=== PATIENT | female | born 1955 | race Caucasian/White ===

== ENCOUNTER 2018-06-28 13:49 | Inpatient (IN) | payer MEDICAID ==
[~2018-06-28] VITALS: Ht 152.4 cm; Wt 72.6 kg
[~2018-06-28 13:49] MED LIST: AURYXIA1 GM PO; COZAAR25 M1 PO; FERROUS SULFAT325 M2; FUROSEMIDE40 MG PO; HUMALOG100 UNIT/1; IRON325 M1 PO; LANTUS SOLOS100 U/M1 SQ; NEP PO; NOR10; NOR10 PO; NOVOLIN; PHOS PO; SIMVASTATIN40 M1; SYLVANT100 MG IV; TAMIFLU6 MG/ML PO; ZITHROMAX500 MG PO; [UNRECOGNIZED DRUG - OTHER] PO
[2018-06-28 14:55] LABS: BASOPHIL % 0.2 % (0-2)
[2018-06-28 14:59] LABS: PLATELET COUNT 97 x10^3mcL (130-400); RED CELL DISTRIBUTION WIDTH 22.6 % (11.5-14.5)
[2018-06-28 15:08] LABS: ALKALINE PHOSPHATASE 317 U/L (46-116); ALT/SGPT 28 U/L (14-59); AST/SGOT 37 U/L (15-37); BILIRUBIN TOTAL 2.1 mg/dL (0.20-1.00); CALCIUM 8.4 mg/dL (8.5-10.1); CARBON DIOXIDE 32.2 mmol/L (21-32); CHLORIDE SERUM 102 mmol/L (98-107); CREATININE SERUM 2.8 mg/dL (0.6-1.0); GFR1 18 mL/min; SODIUM SERUM 140 mmol/L (136-145); TOTAL PROTEIN, SERUM 7.3 g/dL (6.4-8.2)
[2018-06-28 15:10] LABS: POTASSIUM SERUM 2.9 mmol/L (3.5-5.1)
[2018-06-28 15:12] LABS: GLUCOSE SERUM 184 mg/dL (74-106)
[2018-06-28 16:41] LABS: MAGNESIUM 1.8 mg/dL (1.8-2.4); PHOSPHOROUS 2.5 mg/dL (2.5-4.9)
[2018-06-28 16:44] LABS: CHOLESTEROL/HDL RATIO 2.6
[2018-06-28 16:52] LABS: T3 TOTAL 1.02 ng/mL
[2018-06-28 17:03] LABS: FREE T4 1.62 ng/dL (0.76-1.46); FREE THYROXINE INDEX 4.6 ug/dL (1.4-4.5); T4(THYROXINE) 11.6 ug/dL (4.7-13.3)
[2018-06-28 17:19] VITALS: BP 114/50
[2018-06-28 17:25] VITALS: Ht 152.4 cm; Wt 72.6 kg
[2018-06-28 20:33] VITALS: BP 102/42
[2018-06-29 03:10] LABS: UA SPECIFIC GRAVITY 1.015 (1.005-1.035); microscopic required? YES; urine erythrocyte TRACE (NEGATIVE)
[2018-06-29 05:26] VITALS: BP 110/47
[2018-06-29 07:17] LABS: BASOPHIL % 0.4 % (0-2)
[2018-06-29 07:20] LABS: PLATELET COUNT 80 x10^3mcL (130-400); RED CELL DISTRIBUTION WIDTH 22.6 % (11.5-14.5)
[2018-06-29 07:30] LABS: BILIRUBIN DIRECT 0.96 mg/dL (0.0-0.2); BILIRUBIN TOTAL 1.37 mg/dL (0.20-1.00); CREATININE SERUM 3.4 mg/dL (0.6-1.0); POTASSIUM SERUM 3.6 mmol/L (3.5-5.1)
[2018-06-29 10:34] VITALS: BP 156/63
[2018-06-29 13:59] VITALS: BP 118/55
[2018-06-29 17:58] VITALS: BP 148/68
[2018-06-29 20:55] VITALS: BP 125/42
[2018-06-30 05:12] VITALS: BP 127/46
[2018-06-30 07:17] LABS: BASOPHIL % 0.5 % (0-2)
[2018-06-30 07:30] LABS: PLATELET COUNT 94 x10^3mcL (130-400)
[2018-06-30 07:47] LABS: CALCIUM 8.5 mg/dL (8.5-10.1); CARBON DIOXIDE 26.6 mmol/L (21-32); POTASSIUM SERUM 4.1 mmol/L (3.5-5.1)
[2018-06-30 07:52] LABS: CREATININE SERUM 4.3 mg/dL (0.6-1.0)
[2018-06-30 09:42] VITALS: BP 147/78
[2018-06-30 17:24] VITALS: BP 122/43
[2018-06-30 22:01] VITALS: BP 140/49
[2018-07-01 05:58] VITALS: BP 132/56
[2018-07-01 07:11] LABS: CALCIUM 8.3 mg/dL (8.5-10.1); CARBON DIOXIDE 24.9 mmol/L (21-32); CREATININE SERUM 3.3 mg/dL (0.6-1.0); POTASSIUM SERUM 4.4 mmol/L (3.5-5.1)
[2018-07-01 07:19] LABS: BASOPHIL % 0.5 % (0-2)
[2018-07-01 07:27] LABS: PLATELET COUNT 88 x10^3mcL (130-400); RED CELL DISTRIBUTION WIDTH 22.3 % (11.5-14.5)
[2018-07-01 09:38] LABS: rbc morphology (normal/abnorm) ABNORMAL (NORMAL)
[2018-07-01 09:53] VITALS: BP 143/100
[2018-07-01 17:59] VITALS: BP 130/54
[2018-07-01 20:59] VITALS: BP 138/51
[2018-07-02 05:33] VITALS: BP 136/72
[2018-07-02 07:26] LABS: BASOPHIL % 0.5 % (0-2)
[2018-07-02 07:37] LABS: PLATELET COUNT 84 x10^3mcL (130-400); RED CELL DISTRIBUTION WIDTH 22.5 % (11.5-14.5)
[2018-07-02 07:42] LABS: CALCIUM 8.4 mg/dL (8.5-10.1); CARBON DIOXIDE 22.4 mmol/L (21-32); POTASSIUM SERUM 4.4 mmol/L (3.5-5.1)
[2018-07-02 08:40] VITALS: BP 152/70
[2018-07-02 17:30] VITALS: BP 132/52
[2018-07-02] MEDS ORDERED: REQUIP0.5 MG PO (19:29)
[2018-07-02 20:34] VITALS: BP 142/48
[2018-07-03 05:22] VITALS: BP 152/53
[2018-07-03 07:51] LABS: CALCIUM 8.7 mg/dL (8.5-10.1); CARBON DIOXIDE 23.7 mmol/L (21-32); PHOSPHOROUS 5.1 mg/dL (2.5-4.9); POTASSIUM SERUM 4.7 mmol/L (3.5-5.1)
[2018-07-03 07:54] LABS: CREATININE SERUM 4.7 mg/dL (0.6-1.0)
[2018-07-03 08:06] LABS: BASOPHIL % 0.6 % (0-2)
[2018-07-03 08:08] VITALS: BP 131/61
[2018-07-03 08:13] LABS: PLATELET COUNT 91 x10^3mcL (130-400)
[2018-07-03 11:51] VITALS: BP 146/64
[2018-07-03 18:35] VITALS: BP 149/66
[2018-07-03 22:23] VITALS: BP 139/48
[2018-07-04 06:09] VITALS: BP 139/61
[2018-07-04 06:23] LABS: BASOPHIL % 0.4 % (0-2)
[2018-07-04 06:44] LABS: CALCIUM 8.5 mg/dL (8.5-10.1); CARBON DIOXIDE 26.4 mmol/L (21-32); CREATININE SERUM 3.8 mg/dL (0.6-1.0); PHOSPHOROUS 4.2 mg/dL (2.5-4.9); POTASSIUM SERUM 3.8 mmol/L (3.5-5.1)
[2018-07-04 08:35] LABS: PLATELET COUNT 87 x10^3mcL (130-400); RED CELL DISTRIBUTION WIDTH 22.1 % (11.5-14.5)
[2018-07-04 09:43] VITALS: BP 132/62
[2018-07-04] MEDS ORDERED: TAM75 PO (10:40)
[2018-07-04 10:45] LABS: rbc morphology (normal/abnorm) ABNORMAL (NORMAL)
[2018-07-04 13:19] VITALS: BP 132/62
== END 2018-07-04 15:49 | disposition home or self-care (01) | DRG 720 ==
LOC: ED 13:49 → MU 16:08 → DU 16:08 → MU 06-29 09:51
PROVIDERS: Emergency Medicine; Internal Medicine Nephrology; ADMIT Internal Medicine
DX: A41.9 Sepsis, unspecified organism (principal); N17.0 Acute kidney failure with tubular necrosis; I13.2 Hypertensive heart and chronic kidney disease with heart failure and with stage 5 chronic kidney disease, or end stage renal disease; J10.00 Influenza due to other identified influenza virus with unspecified type of pneumonia; G92 Toxic encephalopathy; N18.6 End stage renal disease; E11.22 Type 2 diabetes mellitus with diabetic chronic kidney disease; I50.43 Acute on chronic combined systolic (congestive) and diastolic (congestive) heart failure; E87.6 Hypokalemia; E87.1 Hypo-osmolality and hyponatremia; E11.65 Type 2 diabetes mellitus with hyperglycemia; D63.1 Anemia in chronic kidney disease; Z99.2 Dependence on renal dialysis; Z68.32 Body mass index [BMI] 32.0-32.9, adult; Z79.84 Long term (current) use of oral hypoglycemic drugs
CPT/HCPCS: 82962; 83880; 84439; 87804; J0692; J0696; J1815; J1885; J3480; J7030; J7050; Q0092; Q0163

== ENCOUNTER 2018-08-26 23:50 | Emergency (ER) | payer MEDICAID ==
[~2018-08-26] VITALS: Ht 149.9 cm; Wt 70.3 kg
[~2018-08-26 23:50] MED LIST changes: +REQUIP0.5 MG PO; +TAM75 PO
[2018-08-27 00:16] VITALS: Ht 149.9 cm; Wt 70.3 kg
[2018-08-27 03:19] VITALS: BP 115/59
== END 2018-08-27 03:19 | disposition home or self-care (01) ==
LOC: ED 23:50
DX: K52.9 Noninfective gastroenteritis and colitis, unspecified (principal); I48.91 Unspecified atrial fibrillation; I12.0 Hypertensive chronic kidney disease with stage 5 chronic kidney disease or end stage renal disease; N18.6 End stage renal disease; Z99.2 Dependence on renal dialysis; Z88.5 Allergy status to narcotic agent; Z91.040 Latex allergy status; Z88.1 Allergy status to other antibiotic agents; Z98.890 Other specified postprocedural states
CPT/HCPCS: J3010

== ENCOUNTER 2018-09-05 00:25 | Inpatient (IN) | payer MEDICAID ==
[~2018-09-05] VITALS: Ht 152.4 cm; Wt 74.6 kg
[2018-09-05 00:50] VITALS: Ht 152.4 cm; Wt 74.6 kg
--- NOTE | 2018-09-05 01:14 | NUR ---
DR RG AT BEDSIDE
[2018-09-05 02:10] LABS: BASOPHIL % 0.3 % (0-2)
[2018-09-05 02:14] LABS: PLATELET COUNT 121 x10^3mcL (130-400); RED CELL DISTRIBUTION WIDTH 20.7 % (11.5-14.5)
[2018-09-05 02:22] LABS: CALCIUM 8.7 mg/dL (8.5-10.1); CARBON DIOXIDE 24.6 mmol/L (21-32); POTASSIUM SERUM 4.3 mmol/L (3.5-5.1)
[2018-09-05 02:27] LABS: BILIRUBIN TOTAL 3.39 mg/dL (0.20-1.00)
[2018-09-05 02:28] LABS: ALBUMIN 2.5 g/dL (3.4-5.0)
--- NOTE | 2018-09-05 02:45 | NUR ---
PT IS RESTING IN ED GURNEY AND HAS FAMILY AT BEDSIDE. PT ON ALL MONITORS. NO ACD NOTED
--- NOTE | 2018-09-05 04:26 | NUR ---
PT MEDICATED PER EMAR ORDERS. PT IS RESTING IN ED GURNEY WITH FAMILY AT BEDSIDE. PT DENIES ANY PAIN AT THIS TIME. PT IS A/O X4. PT RESPS ARE E/U. NO ACD NOTED AT THIS TIME
[2018-09-05 04:36] LABS: UA SPECIFIC GRAVITY 1.015 (1.005-1.035); microscopic required? YES; urine erythrocyte 1+ (NEGATIVE)
--- NOTE | 2018-09-05 04:38 | NUR ---
GAVE PT REPORT TO HERON MEHTA THAT WILL ASSUME PRIMARY CARE OF PT ONCE SHE ARRIVES ON MED SURG FLOOW TO TOM 218A
[2018-09-05 04:46] LABS: MAGNESIUM 2.1 mg/dL (1.8-2.4); PHOSPHOROUS 4.5 mg/dL (2.5-4.9)
[2018-09-05 04:55] LABS: T3 TOTAL 0.9 ng/mL
[2018-09-05 04:57] LABS: FREE T4 1.42 ng/dL (0.76-1.46); FREE THYROXINE INDEX 2.5 ug/dL (1.4-4.5); T4(THYROXINE) 6.7 ug/dL (4.7-13.3)
--- NOTE | 2018-09-05 05:00 | NUR ---
PT TAKEN UPSTAIRS TO MED SURG FLOOD ROOM 218B BY AMBER CACERES. NO INCIDENCE NOTED
[2018-09-05 05:02] VITALS: BP 102/66
--- NOTE | 2018-09-05 05:41 | NUR ---
Admitted this 63y/o female from ED via cat ARELLANO of abd'l.pain. No family member present. Awake, verbally responsive. No respiratory distress noted on 02 2lpm via n/c. Denies pain, denies n/v. Admission assessment done. No pressure injury noted. Ambulatory. DAWIT AV shunt (+)bruit/thrill. Call light within reach.
--- NOTE | 2018-09-05 07:48 | NUR ---
Nutrition Note Nursing Trigger received "Admitted with potential risk diagnosis" Pt admitted with abd pain per H&P documentations. Pt does not meet high risk criteria per nutrition care policy and standards. Pt will be assessed as moderate risk and initial assessment due on 09/08-09/10.
--- NOTE | 2018-09-05 08:00 | NUR ---
AWAKE ON INITIAL ROUNDS. NOTED RIGHT EXTERNAL JUGULAR ACCESS. DENIES ANY DISCOMFORT. INSTRUCTED TO CALL RN FOR ANY NEED.
[2018-09-05 08:34] VITALS: BP 99/48
--- NOTE | 2018-09-05 09:41 | NUR ---
MD ECKERT CALLED TO CHECK PATIENTS HD DAYS. FOR HD TODAY.
--- NOTE | 2018-09-05 09:43 | NUR ---
BENADRYL PO GIVEN FOR PRURITUS.
--- NOTE | 2018-09-05 10:27 | NUR ---
Discount pharmacy card and list to low cost medical clinics given to patient by Cm.
--- NOTE | 2018-09-05 12:05 | NUR ---
ASLRADHAP. HD RN HERE AND AWARE OF DIALYSIS REQUEST FROM MD ECKERT.
--- NOTE | 2018-09-05 14:48 | NUR ---
DIALYSIS STILL IN PROGRESS. NO DISCOMFORTED REPORTED FROM THE PT
--- NOTE | 2018-09-05 16:30 | NUR ---
DIALYSIS COMPLETE. 2L OUT. VSS
[2018-09-05 16:33] VITALS: BP 123/56
--- NOTE | 2018-09-05 18:47 | NUR ---
PT IN BED. RESP EQUAL AND UNLABORED, NO DISTRESS REPORTED. WILL ENDORSE TO ONCOMING SHIFT
--- NOTE | 2018-09-05 19:30 | NUR ---
RECEIVED REPORT FROM AM NURSE, PT IN RESTROOM. AAOX4 CITIZEN OF [place] SPEAKING ONLY, MED-SURG, DENIES ANY CP/PRESSURE AT THIS TIME. WEAK PALPABLE PULSES TO BLE AND BUE, +2 PITTING EDEMA TO BLE. BREATHING EVEN AND UNLABORED ON 3L NC, DIMISHED LUNG SOUND TO NGA BASES, NO SIGNS OR RESP DISTRESS NOTED. ABD SOFT AND ROUND, ACTIVE BOWELS SOUNDS X4 QUAD, DENIES NAUSEA. ON HD, AV SHUNT TO RUE WITH GOOD BRUIT AND THIRLL, PER AM NURSE PT HAD DIALYSIS TODAY WITH 2L OUTPUT. VOIDS FREELY BRP. AMBULATORY. DISCOLORATION TO BLE. REJ PATENT AND INTACT. NO ACUTE DISTRESS NOTED. BED AT LOWEST POSTION, CALL LIGHT WITHING REACH, WILL CONTINUE TO MONITOR.
[2018-09-05 21:29] VITALS: BP 95/63
--- NOTE | 2018-09-05 21:33 | NUR ---
PT C/O ITCHINESS, MEDICATED WITH PRN BENEDRYL WITH GOOD RELIEF. PT BREATHING AND UNLABORED, NO SIGNS OF ACTUTE DISTRESS NOTED.
--- NOTE | 2018-09-06 00:43 | NUR ---
PT AWAKE IN BED, BREATHING EVEN AND UNLABORED ON 3L NC, NO SIGNS OF ACUTE DISTRESS NOTED. BED AT LOWEST POSTION, CALL LIGHT WITHING REACH, WILL CONTINUE TO MONITOR.
--- NOTE | 2018-09-06 01:13 | NUR ---
PT C/O ITCHINESS, MEDICATED WITH PRN BENEDRYL WITH GOOD RELIEF. PT BREATHING AND UNLABORED, NO SIGNS OF ACTUTE DISTRESS NOTED.
--- NOTE | 2018-09-06 05:30 | NUR ---
PT C/O ITCHINESS, PRN BENADRYL GIVEN, WILL REASSESS RELIEF. BREATHING EVEN AND UNLABORED ON 3L NC, NO SIGNS OF ACUTE DISTRESS NOTED.
[2018-09-06 05:32] VITALS: BP 99/47
--- NOTE | 2018-09-06 05:57 | NUR ---
PT SLEPT AT INTERVALS THROUGHOUT THE NIGHT, BREATHING EVEN AND UNLABORED ON 3L NC, NO SIGNS OF ACUTE DISTRESS NOTED. BED AT LOWEST POSTION, CALL LIGHT WITHING REACH. ALL NEEDS ASSESSED AND ATTENDED, WILL ENDORSE CARE TO AM NURSE.
[2018-09-06 06:16] LABS: BASOPHIL % 0.4 % (0-2)
[2018-09-06 06:31] LABS: PLATELET COUNT 104 x10^3mcL (130-400); RED CELL DISTRIBUTION WIDTH 21.1 % (11.5-14.5)
[2018-09-06 06:53] LABS: CALCIUM 8.7 mg/dL (8.5-10.1); CREATININE SERUM 3.3 mg/dL (0.6-1.0); PHOSPHOROUS 4.6 mg/dL (2.5-4.9); POTASSIUM SERUM 4.4 mmol/L (3.5-5.1)
--- NOTE | 2018-09-06 07:43 | NUR ---
RECIEVED CARE OF PATIENT, PATIENT SITTING UP IN BED AWAKE. NOT COMPLAINING OF PAIN. DIALYSIS NURSE AT BEDSIDE SETTING UP EQUIPMENT. PROVIDED DIALYSIS NURSE WITH 2L NS AND REQUESTED LAB AND ORDER PRINTOUT.
--- NOTE | 2018-09-06 07:50 | NUR ---
ECHOCARDIOGRAM PENDING-HAVING DIALYSIS
--- NOTE | 2018-09-06 07:54 | NUR ---
RECEIVED PHONE CALL FROM [facility] STATING THAT ECHOGARDIOGRAM IS STILL ENDING DUE TO PATIENT RECEIVING DIALYSIS, WILL ATTEMPT TO COME BACK AROUND 11AM
--- NOTE | 2018-09-06 09:22 | NUR ---
ADMINISTERED PO MEDICATION PER MAR. PATIENT RECEVING HD AT THIS TIME. DIALYSIS NURSE AT BEDSIDE
[2018-09-06 09:39] LABS: rbc morphology (normal/abnorm) ABNORMAL (NORMAL); tear drop cell (dacryocyte) 1+
[2018-09-06 10:06] VITALS: BP 104/54
--- NOTE | 2018-09-06 11:10 | NUR ---
REPORT FROM DIALYSIS NURSE STATED THAT SHE DID NOT CLEAN BLOO ONLY REMOVED FLUID. 3L TOTAL OUT. PATIENT STABLE, AMBULATING AFTER DIALYSIS. SHUNT ON LEFT ARM INTACT, NO SWELLING, BRUIT PRESENT. CALL LIGHT WITHIN REACH OF PATIENT
--- NOTE | 2018-09-06 12:03 | NUR ---
ADMINSITERED MEDICATION PER MAY. PATIENT COMPLAINING OF PAIN TO ADM 09/26. ADMINISTERED NORCO PER MAY. INFORMED PATIENT WILL REASSESS PAIN IN 1 HOUR.
--- NOTE | 2018-09-06 12:31 | NUR ---
US TECH SEEN WITH PATIENT DOING ECHOGARDIOGRAM
[2018-09-06 17:41] VITALS: BP 92/56
--- NOTE | 2018-09-06 19:40 | NUR ---
PT IS A/O X4. PT IS MED SURG, DENIES ANY CHEST PAIN OR SOB AT THIS TIME. PT BREATHE SOUNDS ARE EVEN AND UNLABORED. PT LUNG SOUNDS ARE CLEAR BILATERALLY. PT IS ON NC 2L O2 WITH NO RESP DISTRESS NOTED. PT HAS PALPABLE PULSES, EDEMA NOTED ON THE BLE. PT LAST BM 09/06, ABD DISTENDED AND SOFT. PT DENIES ANY ABD PAIN AT THIS TIME. PT HAS ACTIVE BOWEL SOUNDS. PT IS ABLE TO VOID INDEPENDENTLY, PT HAS AV FISTULA TO THE L ARM. BRUIT AND THRILL PRESENT. HD COMPLETED 09/06 WITH 3L OUPUT. PT SKIN IS WARM AND DRY. PT IV TO REJ INTACT S/L. WILL CONTINUE TO MONITOR PT.
[2018-09-06 20:45] VITALS: BP 116/79
--- NOTE | 2018-09-06 21:31 | NUR ---
SPOKE WITH MESFIN-RN FROM HD COMPANY, MADE MESFIN AWARE OF THAT PT NEEDS ANOTHER HD IN AM, PER MESFIN HE WILL PUT PT ON THE SCHEDULE.
--- NOTE | 2018-09-06 22:05 | NUR ---
PT C/O OF ITCHINESS. PT RECIEVED BENDRYL X1. WILL CONTINUE TO MONITOR.
--- NOTE | 2018-09-07 00:14 | NUR ---
PT IS AWAKE AND ALERT. NO COMPLAINS OF PAIN OR ITCHNESS AT THIS TIME. PT BREATHING IS EVEN AND UNLABORED. NO RESP DISTRESS NOTED.
--- NOTE | 2018-09-07 03:04 | NUR ---
PT ROUNDS WERE MADE. PT ASLEEP IN BED. PT IS EASILY AROUSABLE TO VERBAL COMMUNICATIONS. PT BREATHING IS EVEN AND UNLABORED. PT IS CALM AND NO RESP DISTRESS NOTED. PT DENIES PAIN AT THIS TIME.
--- NOTE | 2018-09-07 06:05 | NUR ---
PT SLEPT LONG INTERVALS THROUGH OUT THE NIGHT. PT C/O OF NO PAIN AT THIS TIME. PT BREATHING WAS EVEN AND UNLABORED ON RA. PT IS MED SURG. PT VOIDED SMALL AMOUNTS THROUGH OUT THE NIGHT. PT RECEIVED BENEDRYL X2 FOR ITCHINESS. PT HAS IV TO REJ S/L INTACT AND PATENT. PT AV FISTULA LUE, BRUIT AND THRILL PRESENTED. PT IS SCHEDULED FOR HD TODAY. PT MORNING BLOOD SUGAR WAS 73, NO INSULIN COVERAGE NEEDED. PT BLE EDEMA NOTED.PT WAS COOPERATIVE WITH NURSING CARE.
[2018-09-07 06:07] VITALS: BP 128/55
--- NOTE | 2018-09-07 07:00 | NUR ---
RECEIVED BEDSIDE REPORT FROM ESTIMATOR LUMBER NURSE. PATIENT IS SLEEPING COMFORTABLY INBED. NO APPARENT SIGNS OF PAIN. PATIENT ON OXYGEN 2L NC. NO APPARENT SIGNS OF SOB, OR RESPIRATORY DISTERSS. PATIENT HAS REJ IV ACCESS. SALIE LOCKED. NO ERYTHEMA, OR EDEMA NOTED AT SITE. ID BAND IN PLACE. ALLERGY BAND IN PLACE. CALL LIGHT WITHIN REACH. BED IN LOW POSITION. SCD'S AT BEDSIDE. SAFETY PRECAUTIONS IN PLACE.
[2018-09-07] MEDS ORDERED: BENADRYL ALLERG25 M1 PO (08:09)
[2018-09-07] MEDS ORDERED: CORTIZONE-1028 GM TOP (08:09)
--- NOTE | 2018-09-07 08:50 | NUR ---
ADMINISTERED MORNING MEDICATION, PATIENT WAS EDUCATED ON NEED FOR MEDICATION WELL ADVERSE EFFECTS TO REPORT. PATIENT VERBALIZED UNDERSTANDING OF EDUCATION. MEDICATION WAS ADMINISTERED. PATIENT DENIES OTHER NEEDS AT THIS TIME. SAFETY PRECAUTION IN PLACE.
[2018-09-07 09:15] VITALS: BP 129/43
[2018-09-07 09:26] LABS: CALCIUM 9.1 mg/dL (8.5-10.1); CARBON DIOXIDE 25.7 mmol/L (21-32)
[2018-09-07 09:36] LABS: CREATININE SERUM 4.2 mg/dL (0.6-1.0)
--- NOTE | 2018-09-07 11:41 | NUR ---
ADMINISTERED GLUCOSE CHECK. PATIENT TOLORATED WELL, PATIENT RESTING COMFORTABLY INBED. NO APPARENT SIGNS OF PAIN, SOB, OR RESPIRATORY DISTRESS. ON 2L NC. RESPIRATIONS EVEN, NOT LABORED. PATIENT DENIES OTHER NEEDS AT THIS TIME. QUESTIONS AND CONCERNS ADDRESSED, SAFETY PRECAUTIONS IN PLACE.
[2018-09-07 16:20] VITALS: BP 130/53
[2018-09-07 18:47] VITALS: BP 130/53
--- NOTE | 2018-09-07 19:08 | NUR ---
PATIENT IS STABLE, NO APPARENT SIGNS OF PAIN, SOB, OR RESPIRATORY DISTRESS. PATIENT GIVEN DISCHARGE INSTRUCTIONS AND PRESCRIPTIONS. PATIENT VERBALIZED UNDERSTANDING OF INSTRUCTIONS. ALL PERSONAL BELONGINGS WITH PATIENT. REJ REMOVED, SITE DRESSED NOT BLEEDING. ALL ID BANDS REMOVED. PATIENT TAKEN DOWN BY INSOLE AND HEEL STIFFENER VIA WHEEL CHAIR. DISCHARGE COMPLETE.
== END 2018-09-07 19:05 | disposition home or self-care (01) | DRG 470 ==
LOC: ED 00:25 → MU 03:35
PROVIDERS: Emergency Medicine; Internal Medicine; ADMIT General Practice
DX: I12.0 Hypertensive chronic kidney disease with stage 5 chronic kidney disease or end stage renal disease (principal); N17.0 Acute kidney failure with tubular necrosis; E43 Unspecified severe protein-calorie malnutrition; R18.8 Other ascites; E11.22 Type 2 diabetes mellitus with diabetic chronic kidney disease; J90 Pleural effusion, not elsewhere classified; N18.6 End stage renal disease; E11.65 Type 2 diabetes mellitus with hyperglycemia; R74.0 Nonspecific elevation of levels of transaminase and lactic acid dehydrogenase [LDH]; L29.9 Pruritus, unspecified; F15.21 Other stimulant dependence, in remission; E78.5 Hyperlipidemia, unspecified; Z99.2 Dependence on renal dialysis; Z79.4 Long term (current) use of insulin; Z68.30 Body mass index [BMI] 30.0-30.9, adult; Z87.891 Personal history of nicotine dependence; Z79.84 Long term (current) use of oral hypoglycemic drugs
CPT/HCPCS: 82962; 84439; G0378; J1200; J1815; J2270; J2405; J7030; Q0092; Q0163

== ENCOUNTER 2018-10-01 02:05 | Inpatient (IN) | payer MEDICAID ==
[~2018-10-01] VITALS: Ht 152.4 cm; Wt 81.2 kg
[~2018-10-01 02:05] MED LIST changes: +BENADRYL ALLERG25 M1 PO; +CORTIZONE-1028 GM TOP
[2018-10-01 02:08] VITALS: Ht 152.4 cm; Wt 81.2 kg
--- NOTE | 2018-10-01 02:15 | NUR ---
PT AMBULATORY WITH STEADY GAIT TO RM
--- NOTE | 2018-10-01 02:20 | NUR ---
PT C/O PRESSURE-LIKE ROCK DUSTER AND EPIGASTRIC PAIN WITH CONSTIPATION, NAUSEA, AND ABD DISTENTION X3 DAYS. PT ALSO C/O BLE SWELLING X3 DAYS. PT STS SHE DRANK PRUNE JUICE AROUND 2200 LAST NIGHT FOR THE CONSTIPATION, PT STS SHE RECEIVES DIALYSIS MONDAY,MONDAY, MONDAY, WITH LAST TX Monday09/29/18 PT DENIES ANY SOB, DIZZINESS, AND/OR EPISODES OF VOMITING. PT AAOX4, RESPS E/U, PT SPO2 89% VIA RA, PT THEN PLACED ON 2L OF O2 VIA NC WITH SPO2 AT 99%, LUNGS CTA, ABD DISTENTION NOTED AND FIRM UPON PALPATION, HYPERACTIVE BOWEL SOUNDS NOTED TO ALL FOUR QUADRANTS, BLE SWELLING WITH ERYTHEMA NOTED, AV SHUNT WITH +BRUIT AND THRILL NOTED TO JACOBY, PT GOWNED AND PLACED ON FULL CM, NSR, DAUGHTER AT BEDSIDE, PT IN NAD AWAITING MSE
--- NOTE | 2018-10-01 02:23 | NUR ---
PT AMBULATORY WITH STEADY TO RESTROOM
--- NOTE | 2018-10-01 02:45 | NUR ---
SING AT BEDSIDE PERFORMING MSE
--- NOTE | 2018-10-01 02:54 | NUR ---
PORTABLE CXR AT BEDSIDE
--- NOTE | 2018-10-01 02:56 | NUR ---
LAB AT BEDSIDE
--- NOTE | 2018-10-01 03:09 | NUR ---
PT TAKEN TO CT VIA PABLO
[2018-10-01 03:10] LABS: BASOPHIL % 0.4 % (0-2); PLATELET COUNT 143 x10^3mcL (130-400)
[2018-10-01 03:11] LABS: RED CELL DISTRIBUTION WIDTH 19.6 % (11.5-14.5)
[2018-10-01 03:34] LABS: ALBUMIN 2.7 g/dL (3.4-5.0); CARBON DIOXIDE 28.3 mmol/L (21-32); POTASSIUM SERUM 4.4 mmol/L (3.5-5.1); TOTAL PROTEIN, SERUM 6.7 g/dL (6.4-8.2)
[2018-10-01 03:35] LABS: BILIRUBIN TOTAL 3.96 mg/dL (0.20-1.00); CALCIUM 9.6 mg/dL (8.5-10.1)
[2018-10-01 03:36] LABS: CREATININE SERUM 4.4 mg/dL (0.6-1.0)
--- NOTE | 2018-10-01 03:55 | NUR ---
BEDSIDE COMMODE PLACED IN PT RM, PT IN NAD, DAUGHTER AT BEDSIDE
--- NOTE | 2018-10-01 04:04 | NUR ---
PT C/O 12/27 ABD PAIN SING MADE AWARE
--- NOTE | 2018-10-01 04:19 | NUR ---
PT STS PAIN LEVEL NOW 07/27, VSS, RESPS E/U, CALL LIGHT WITHIN REACH, LIGHTS DIMMED PER PT REQUEST AND COMFORT, DAUGHTER AT BEDSIDE
--- NOTE | 2018-10-01 05:30 | NUR ---
PT IN POSITION OF COMFORT ASLEEP BUT AROUSABLE, RESPS E/U, VSS, DAUGHTER AT BEDSIDE
--- NOTE | 2018-10-01 05:32 | NUR ---
DAUGHTER, SHAHANA, STATED SHE IS LEAVING TO GO HOME TO SLEEP
--- NOTE | 2018-10-01 05:33 | NUR ---
PT REQUESTS THAT I CONTACT HER DAUGHTER, SHAHANA, TO LET HER KNOW WHEN SHE GETS ADMITTED.
--- NOTE | 2018-10-01 06:12 | NUR ---
REPORT GIVEN TO RON MEHTA FROM MED SURG
--- NOTE | 2018-10-01 06:51 | NUR ---
PT ASLEEP BUT AROUSABLE IN POSITION OF COMFORT, RESPS E/U, VSS, IN NAD AT THIS TIME
--- NOTE | 2018-10-01 07:25 | NUR ---
RECEIVED PATIENT FROM ED NURSE VIA ANAHI. PATIENT A/OX4 ABLE TO MAKE NEEDS KNOWN AND FOLLOW COMMANDS, DENIES HEADACHE. TELE [address] READING SR, DENIES PAIN AT REST AT THIS TIME, NITRO PATCH IN PLACE TO CHEST UPON ADMISSION. LUNGS DIMINISHED TO LEFT SIDE AND BILAT BASES, DENIES FEELING SOB ON 2L NC, O2 SAT 94%, REPORTS USING HOME O2 PRN. ABD DISTENTION NOTED AND REPORTS PAIN UPON PALPATION TO LEFT UPPER QUADRANT. BOWEL SOUNDS ACTIVE AND STATES HAVING 4-5BM'S THIS AM. DENIES N/V. AV SHUNT WITH BRUIT/THRILL NOTED TO LEFT UPPER ARM, LAST HD DONE ON MONDAY. PERIPHERAL PULSES PALPABLE, BLE EDEMA AND SWELLING NOTED WITH REDNESS. SMALL SCAB TO BACK, NO ACTIVE BLEEDING. IV SITE TO LEFT AC, 10 CC NS FLUSHED, NO REDNESS/SWELLING NOTED. CALL LIGHT WITHIN REACH.
--- NOTE | 2018-10-01 08:00 | NUR ---
NS FLUIDS INITIATED VIA LAC IV, 10ML/HR. DENIES PAIN. PHOTO TAKEN OF BACK SCAB. CALL LIGHT WITHIN REACH AND DEMONSTRATES KNOWLEDGE ON HOW TO UTILIZE. WILL CONT TO MONITOR.
[2018-10-01 08:19] LABS: MAGNESIUM 2.7 mg/dL (1.8-2.4); PHOSPHOROUS 3.6 mg/dL (2.5-4.9)
[2018-10-01 08:21] LABS: CHOLESTEROL/HDL RATIO 6.2
[2018-10-01 10:08] VITALS: BP 114/51
[2018-10-01 13:19] VITALS: BP 114/51
--- NOTE | 2018-10-01 13:31 | NUR ---
CALLED TO AND RELAYED THE RESULTS OF THE U/S CHEST.
--- NOTE | 2018-10-01 14:30 | NUR ---
PATIENT REPORTS LEAKING TO IV SITE. DRESSING CHANGED AND IV FLUSHED, NO LEAKS OBSERVED AND LINE PATENT, NO REDNESS/SWELLING TO SITE. DIALYSIS NURSE NOW AT BEDSIDE, HD INITIATED. NO ACUTE DISTRESS AT THIS TIME. WILL CONT TO MONITOR.
--- NOTE | 2018-10-01 17:10 | NUR ---
Discount pharmacy card and list to low cost medical clinics given to patient by Madisyn Grant.
--- NOTE | 2018-10-01 17:40 | NUR ---
PATIENT REQUESTING TO CHECK BLOOD SUGAR, REPORTS VOMITING X1 SMALL AMOUNT AFTER DIALYSIS. BLOOD SUGAR 175. OFFERED ZOFRAN, INSTEAD REQUESTING FOR MORPHINE PAIN MED FOR LEFT UPPER CHEST INCREASED PAIN. GIVEN, WILL CONT TO MONITOR.
[2018-10-01 17:48] VITALS: BP 111/73
--- NOTE | 2018-10-01 19:31 | NUR ---
RECIEVED PATIENT AT START OF SHIFT A/O X4. SPEAKS KINYARWANDA WITH SOME GREEK. ON TELE 19 SINUS RAMSEY 59. DENIES PAIN. PULSES ARE MODERATE BUE, WEAK BLE. +2 PITTING EDEMA NOTED TO BLE WITH SOME BLANCHABLE ERYTHEMA, ICT DEVELOPMENT MANAGER. LUNGS ARE DIMINISHED IN BILATERAL LOWER LOBES. NO SOB NOTED ON 2L NC. BS ACTIVE. DENIES N/V. IV TO RAC IS SALINE LOCKED AND PATENT. BED LOCKED AND IN LOWEST POSIITON. CALL LIGHT AND BEDSIDE TABLE WITHIN REACH. USE OF CALL LIGHT REINFORCED. EDUCATED NOT TO GET UP OUT OF BED WITHOUT ASSISTANCE.
[2018-10-01 21:08] VITALS: BP 119/59
--- NOTE | 2018-10-01 21:56 | NUR ---
PATIENT IS REPORTING ITCHINESS AROUND HER BACK. DR. RAUSCH PAGED FOR BENCYNTHIAL AT THIS TIME.
--- NOTE | 2018-10-01 22:35 | NUR ---
PATIENT GIVEN BENADRYL PER EMAR. WOUND ON BACK CLEANED WITH NS. WOUND CULTURE OBTAINED. COVERED WITH ISLAND DRESSING.
[2018-10-02 04:37] VITALS: BP 119/59
--- NOTE | 2018-10-02 05:22 | NUR ---
PATIENT IS AWAKE AND IS REQUESTING A BREATHING TREATMENT. DR KASIE RAMACHANDRAN. RT PROTOCOL ORDERED.
[2018-10-02 06:28] LABS: BASOPHIL % 0.7 % (0-2)
--- NOTE | 2018-10-02 06:30 | NUR ---
PATIENT IS AWAKE, DENIES PAIN. NO SOB ON 2L NC. IV TO RAC SALINE LOCKED AND PATENT. BED LOCKED AND IN LOWEST POSIITON. CALL LIGHT WITHIN REACH. WILL ENDORSE CARE TO MORNING NURSE.
[2018-10-02 06:38] LABS: CALCIUM 9.5 mg/dL (8.5-10.1); CARBON DIOXIDE 25.5 mmol/L (21-32); CREATININE SERUM 3.6 mg/dL (0.6-1.0); MAGNESIUM 2.3 mg/dL (1.8-2.4); PHOSPHOROUS 4.3 mg/dL (2.5-4.9); PLATELET COUNT 122 x10^3mcL (130-400); POTASSIUM SERUM 4.6 mmol/L (3.5-5.1); RED CELL DISTRIBUTION WIDTH 19.7 % (11.5-14.5)
--- NOTE | 2018-10-02 07:35 | NUR ---
HD NURSE IS AT BEDSIDE FOR HD.
--- NOTE | 2018-10-02 07:45 | NUR ---
PATIENT AWAKE AND ORIENTED TO PERSON, PLACE AND TIME. PATIENT DENIES NAUSEA/VOMITING, SHORTNESS OF BREATH OR PAIN AT THIS TIME. IV SITE TO RAC INTACT. AV SHUNT TO LUE WITH BRUIT AND THRILL. TELE # 9 READS SINUS RHYTHMS AT THIS TIME WITH EPISODES OF SINUS BRADYCARDIA. CALL LIGHT WITHIN REACH. SIDE RAILS UP X3.
--- NOTE | 2018-10-02 09:17 | NUR ---
DR. ORTEZ IS AT BEDSIDE SEEING THE PATIENT.
[2018-10-02 09:57] VITALS: BP 107/52
--- NOTE | 2018-10-02 11:00 | NUR ---
HEMODIALYSIS COMPLETED. 3300 ML OUTPUT REPORTED FROM HD NURSE. BP 114/48, AND HR 70. PATIENT DENIES ANY DISCOMFORT AT THIS TIME.
[2018-10-02 11:59] VITALS: BP 103/43
--- NOTE | 2018-10-02 12:41 | NUR ---
RAD NURSE, MONIQUE AND US TECH ARE AT BEDSIDE FOR US GUIDED THORACENTESIS.
--- NOTE | 2018-10-02 13:15 | NUR ---
THORACENTESIS COMPLETED WITH 625ML OF OUTPUT REPORTED BY TYSON AMAYA FROM [facility]. THE PATIENT DENIES PAIN AFTER PROCEDURE. THE FAMILY IS AT BEDSIDE WITH THE PATIENT NOW.
--- NOTE | 2018-10-02 14:33 | NUR ---
Initial Nutrition Assessment: 234T/A CHARLA MILLER IA HR Dx: CP, fluid overload, abd pain/enteritis, ESRD PMHx: atrial fibrillation, ESRD (TTS), HTN, DM, chronic respiratory failure on 3 L home O2. PSHx: HD L arm shunt Labs: BG 72L, BUN 34H, CREAT 3.6H, A1C 6.5H Meds: D 10%, humulin, morphine, zofran Diet: CCHO PO Intake: (10/02) breakfast 85%, (10/01) lunch 100% Ht: 152.4 cm (60") Wt: 81 kg (178#) BMI: 35 kg/m2 (obese) Bed scale: 80 kg IBW: 100# (45 kg) %IBW: 178 UBW: unable to access Age: 63/F Food Allergies: NKFA Skin: L back wound Wade: 20 Edema: 2+ edema BLE GI: distended abd Last BM: 10/01 Per H&P, Pt is a 63-year-old female with history of atrial fibrillation, ESRD (TTS), HTN, DM, chronic respiratory failure on 3 L home oxygen now presents with dull chest pain, short of breath and abdominal distention, increase in LE swelling for past 3 days. Pain is throughout her chest, 5/10 in intensity. Patient has not had a bowel movement in 3 days prior to arrival. RDN Visit (10/02): Patient was alert and oriented and standing by bedside. Patient is Libyan speaking so [employer] was used for communication. Patient said that she was able to eat most of her breakfast this morning. Patient's abdomen appeared distended. Pt is wheelchair bound. Per progress note (10/02), HD again today - plan to remove another 4L fluid with HD, Thoracentesis per primary team. Paged Dr. Jenkins to discuss recommendations, waiting for call back Problem with: N/V/D/C: no Problems with: Chewing/Swallowing: no Current appetite: good Recent wt change: unable to access d/t translation issues %wt change: N/A Vitamin/Supplement use: pt does consume vitamins at home but does/t remember specific name Special diet at home: Renal Physical activity: pt is wheelchair bound Nutrition education given: [facility] handout on "DM and CKD stage 1 through 4: Nutrition guidelines was provided to the patient". Food-drug interactions: none Education given: n/a Estimated Nutritional Needs Based on ideal body weight 45 kg Energy: 9942-8643 kcal/d (30-35 kcal/kg)- HD Protein: 54-67.5 g/d (1.2-1.5 g/kg)- HD Fluid: per doctor as patient on HD Nutrition Diagnosis 1. Increased nutrient needs related to increased metabolic demands as evidenced by patient on HD. Intervention 1. Recommend Renal (CCHO) diet. Monitor/Evaluate Goal: PO intake at least 75% of estimated needs Monitor: PO intake, Labs, GI function F/U in 3-5 days as moderate risk 10/05-
--- NOTE | 2018-10-02 14:33 | NUR ---
1. Recommend Renal (CCHO) diet.
[2018-10-02 17:26] VITALS: BP 106/44
--- NOTE | 2018-10-02 19:19 | NUR ---
PATIENT AMBULATED AND USED BRP WITH SLOW BUT STEADY GAIT DURING THE SHIFT. REPORT GIVEN TO SELAM BROWN RN. CONCERNS ADDRESSED.
--- NOTE | 2018-10-02 20:00 | NUR ---
LATE ENTRY: PT. AWAKE, ALERT, ORIENTED X4. DENIES HEADACHE OR DIZZINESS. BREATH SOUNDS DIMINISHED NGA. RESP. EVEN, UNLABORED. PT. ON 2L/NC. NO SOB NOTED. DENIES CHESTPAIN. ABD FIRM, DISTENDED. BOWEL SOUNDS ACTIVE. VISIBLE ASCITES. PEDAL PULSES WEAK BLE. +2 EDEMA NOTED. IV HEPLOCKED, RAC, OP SITE BLOODY, BUT APPEARS TO BE OLD BLOOD. PT. DENIES NEED FOR PAIN MEDICATION AT THIS TIME. CALL LIGHT WITHIN REACH.
[2018-10-02 21:33] VITALS: BP 129/62
--- NOTE | 2018-10-02 22:40 | NUR ---
PT. C/O ABD. PAIN. PRN NORCO GIVEN. WILL MONITOR.
[2018-10-02 23:39] LABS: APPEARANCE FLUID CLEAR; COLOR FLUID YELLOW; RBC FLUID 1615 /cumm; WBC FLUID 3 /cumm
[2018-10-02 23:42] LABS: SOURCE FLUID THORACENTESIS
--- NOTE | 2018-10-03 02:09 | NUR ---
LATE ENTRY: IV SITE LEAKING, ONE TO ONE NURSE REMOVED OLD IV CATH AND NEW 22 GAUGE REPLACED IN RAC AREA, SITE INTACT AND FLUSHING WELL.
[2018-10-03 05:40] VITALS: BP 99/52
--- NOTE | 2018-10-03 07:45 | NUR ---
AWAKE,ALERT AND ORIENTED.DENIES ANY PAIN TA THIS TIME. NO ACUTE RESP. DISTRESS NOTED. HEMODIALYSIS PT. AV SHUNT IN LUE W/ GOOD BRUIT/THRILL LAST HEMODIALYSIS 10/02 W/ 3300 ML OUTPUT. PT. ANURIC.C/O GEN. WEAKNESS BUT ABLE TO AMBULATE IN THE BATHROOM LORIN. WELL.CALL LIGHT W/ IN REACH. WILL CONT. PLAN OF CARE.
[2018-10-03 08:16] VITALS: BP 128/54
[2018-10-03 11:31] VITALS: BP 147/69
--- NOTE | 2018-10-03 12:00 | NUR ---
PT. C/O CONSTIPATION NOTIFIED W/ ORDERS RECIEVED AND CARRIED OUT.
--- NOTE | 2018-10-03 14:30 | NUR ---
DR. CUBA NEPHOROGY HERE AND SEEN THE PT AND NOTIFIED ABD. STILL VERY DISTENDED AND EDEMATOUS FROM WAIST LINE TO NGA. LOWER EXTR. MADE AWARE ,AND ORDERED HEMODIALYSIS TODAY .HEMODIALYSIS NURSE NOTIFIED AND MADE AWARE .PT/DAUGHTER MADE AWARE TO HAVE HEMODIALYSIS TODAY.
--- NOTE | 2018-10-03 15:43 | NUR ---
NOTED SOB ON EXERTION DURING ACTIVITY ,CONT,02 AT 2 L N/C ON.NO ACUTE RESP. DISTRESS NOTED.
--- NOTE | 2018-10-03 15:45 | NUR ---
PT. ABLE TO AMBULATE IN THE BATHROOM W/ SLOW GAIT AND HAD BM SMALL AMT OF SOFT STOOLS.
[2018-10-03 16:07] VITALS: BP 116/56
--- NOTE | 2018-10-03 19:38 | NUR ---
RECEIVED PT FROM PREVIOUS SHIFT. HD CURRENTLY AT BEDSIDE. AAO. MEDSURG. ABLE TO MAKE NEEDS KNOWN. NO S/S ACUTE DISTRESS. DENIES PAIN. DENIES SOB. BREATHING E/U ON 2L OXYGEN NC. LUE AV SHUNT CDI, CURRENTLY IN USE FOR DIALYSIS. PT TOLERATING WELL. IV SITE CDI, SALINE-LOCKED, NO ERYTHEMA OR EDEMA. CALL LIGHT WITHIN REACH. WILL CONTINUE TO MONITOR.
[2018-10-03 22:31] VITALS: BP 146/66
--- NOTE | 2018-10-03 22:31 | NUR ---
HD COMPLETED, 3L TAKEN OUT, BP: 146/66 (92), HR 76. PT TOLERATED WELL.
--- NOTE | 2018-10-03 22:47 | NUR ---
NEW IV TO R WRIST INSERTED, #22 GAUGE WITH GOOD BLOOD RETURN. SALINE-LOCKED. OLD IV TO RAC REMOVED, CATHETER INTACT, PRESSURE APPLIED.
--- NOTE | 2018-10-04 02:33 | NUR ---
PT RESTING IN BED WITH EYES CLOSED. BREATHING E/U. NO S/S ACUTE DISTRESS. NO INDICATIONS OF PAIN NOTED. CALL LIGHT WITHIN REACH. SAFETY MEASURES IN PLACE. WILL CONTINUE TO MONITOR.
--- NOTE | 2018-10-04 04:06 | NUR ---
PT MEDICATED PER EMAR FOR BACK PAIN, FACIAL GRIMACING AND MOANING NOTED.
[2018-10-04 05:03] VITALS: BP 102/54
[2018-10-04 06:53] LABS: BASOPHIL % 0.4 % (0-2)
[2018-10-04 07:01] LABS: PLATELET COUNT 95 x10^3mcL (130-400)
[2018-10-04 07:08] LABS: CARBON DIOXIDE 24.8 mmol/L (21-32); CREATININE SERUM 3.5 mg/dL (0.6-1.0)
--- NOTE | 2018-10-04 07:34 | NUR ---
RECEIVED WALKING AROUND IN ROOM. NO ACUTE RESP. DISTRESS NOTED . NO C/O PAIN OR DISCOMFORT. HL PATENT. CALL LIGHT WITHIN REACH. WILL CONTINUE WITH PLAN OF CARE.
[2018-10-04 08:07] VITALS: BP 119/56
[2018-10-04 11:47] VITALS: BP 109/58
[2018-10-04] MEDS ORDERED: LACTULOSE10 GM/152 PO (13:26)
[2018-10-04 13:48] VITALS: BP 109/58
--- NOTE | 2018-10-04 13:56 | NUR ---
PT WILL BE DC'S HOME THIS PM AFTER HEMODIALYSIS. RESTING IN BED, NO C/O PAIN AT THIS TIME.
[2018-10-04 15:40] VITALS: BP 108/53
--- NOTE | 2018-10-04 16:33 | NUR ---
HEMODIALYSIS IN PROGRESS. PT TOLERATING WELL, NO RESP. DISTRESS NOTED. NO C/O PAIN OR DISCOMFORT. PT DOSING ON AND OFF. VS WNL.
--- NOTE | 2018-10-04 17:50 | NUR ---
HEMODIALYSIS COMPLETED, PT TOLERATED WELL. 2.4LITERS OUT.
--- NOTE | 2018-10-04 19:05 | NUR ---
PT DC'D HOME WITH FAMILY IN NO DISTRESS. AWAKE, ALERT AND ORIENTED. VS STABLE. NO C/O PAIN OR DISCOMFORT AT THIS TIME. DC INSTRUCTIONS REVIEWED WITH FAMILY AND PT. RX GIVEN. HL REMOVED AND SITE/CATH INTACT. PERSONAL BELONGINGS TAKEN HOME.
== END 2018-10-04 19:05 | disposition home or self-care (01) | DRG 194 ==
LOC: ED 02:05 → DU 05:49 → MU 10-03 04:58
PROVIDERS: Emergency Medicine; Internal Medicine; Internal Medicine Nephrology; ADMIT Internal Medicine
PROC: 5A1D70Z Performance of Urinary Filtration, Intermittent, Less than 6 Hours Per Day (ICD-10-PCS; 2018-10-01)
PROC: 0W9B3ZZ Drainage of Left Pleural Cavity, Percutaneous Approach (ICD-10-PCS; principal; 2018-10-02)
PROC: 5A1D70Z Performance of Urinary Filtration, Intermittent, Less than 6 Hours Per Day (ICD-10-PCS; 2018-10-02)
PROC: 5A1D70Z Performance of Urinary Filtration, Intermittent, Less than 6 Hours Per Day (ICD-10-PCS; 2018-10-03)
PROC: 5A1D70Z Performance of Urinary Filtration, Intermittent, Less than 6 Hours Per Day (ICD-10-PCS; 2018-10-04)
DX: I13.2 Hypertensive heart and chronic kidney disease with heart failure and with stage 5 chronic kidney disease, or end stage renal disease (principal); J96.01 Acute respiratory failure with hypoxia; E43 Unspecified severe protein-calorie malnutrition; J96.10 Chronic respiratory failure, unspecified whether with hypoxia or hypercapnia; I27.20 Pulmonary hypertension, unspecified; E11.22 Type 2 diabetes mellitus with diabetic chronic kidney disease; J96.20 Acute and chronic respiratory failure, unspecified whether with hypoxia or hypercapnia; N18.6 End stage renal disease; I50.33 Acute on chronic diastolic (congestive) heart failure; Z99.81 Dependence on supplemental oxygen; R18.8 Other ascites; E11.65 Type 2 diabetes mellitus with hyperglycemia; E87.1 Hypo-osmolality and hyponatremia; E83.41 Hypermagnesemia; R07.89 Other chest pain; Z68.32 Body mass index [BMI] 32.0-32.9, adult; K52.9 Noninfective gastroenteritis and colitis, unspecified; I48.91 Unspecified atrial fibrillation; Z99.3 Dependence on wheelchair; Z99.2 Dependence on renal dialysis; Z79.4 Long term (current) use of insulin
CPT/HCPCS: 32555; 82962; 83880; 94150; C1729; G0378; J1815; J2270; J2405; J7030; J7620; Q0092; Q0163

== ENCOUNTER 2018-10-12 02:03 | Emergency (ER) | payer MEDICAID ==
[~2018-10-12] VITALS: Ht 154.9 cm; Wt 68.0 kg
[~2018-10-12 02:03] MED LIST changes: +LACTULOSE10 GM/152 PO
[2018-10-12 02:09] VITALS: Ht 154.9 cm; Wt 68.0 kg
[2018-10-12 03:58] VITALS: BP 124/71
== END 2018-10-12 03:58 | disposition home or self-care (01) ==
LOC: ED 02:03
DX: M25.552 Pain in left hip (principal); M54.5 Low back pain; E11.22 Type 2 diabetes mellitus with diabetic chronic kidney disease; I13.0 Hypertensive heart and chronic kidney disease with heart failure and stage 1 through stage 4 chronic kidney disease, or unspecified chronic kidney disease; N18.9 Chronic kidney disease, unspecified; I48.91 Unspecified atrial fibrillation; Z88.5 Allergy status to narcotic agent; Z91.040 Latex allergy status; Z88.1 Allergy status to other antibiotic agents; W18.2XXA Fall in (into) shower or empty bathtub, initial encounter; Y93.E1 Activity, personal bathing and showering; Y92.091 Bathroom in other non-institutional residence as the place of occurrence of the external cause; Y99.8 Other external cause status
CPT/HCPCS: J1885; Q0092

== ENCOUNTER 2018-11-19 15:42 | Inpatient (IN) | payer MEDICAID ==
[~2018-11-19] VITALS: Ht 152.4 cm; Wt 74.2 kg
[2018-11-19 17:23] LABS: BASOPHIL % 0.3 % (0-2); PLATELET COUNT 161 x10^3mcL (130-400)
[2018-11-19 17:42] LABS: RED CELL DISTRIBUTION WIDTH 25.1 % (11.5-14.5)
[2018-11-19 17:43] LABS: ALBUMIN 1.8 g/dL (3.4-5.0); ALKALINE PHOSPHATASE 267 U/L (46-116); ALT/SGPT 23 U/L (14-59); AST/SGOT 34 U/L (15-37); BILIRUBIN TOTAL 4.2 mg/dL (0.20-1.00); CALCIUM 8.1 mg/dL (8.5-10.1); CARBON DIOXIDE 30.6 mmol/L (21-32); CHLORIDE SERUM 98 mmol/L (98-107); GFR1 10 mL/min; GLUCOSE SERUM 331 mg/dL (74-106); MAGNESIUM 2.7 mg/dL (1.8-2.4); POTASSIUM SERUM 4.3 mmol/L (3.5-5.1); SODIUM SERUM 136 mmol/L (136-145); TOTAL PROTEIN, SERUM 5.1 g/dL (6.4-8.2)
[2018-11-19 17:49] LABS: CREATININE SERUM 4.7 mg/dL (0.6-1.0)
[2018-11-19 18:03] LABS: rbc morphology (normal/abnorm) ABNORMAL (NORMAL)
[2018-11-19 20:04] LABS: CHOLESTEROL/HDL RATIO 15.5
[2018-11-19 20:07] LABS: T3 TOTAL 0.59 ng/mL
[2018-11-19 20:10] LABS: FREE T4 1.07 ng/dL (0.76-1.46)
[2018-11-19 20:16] LABS: FREE THYROXINE INDEX 1.4 ug/dL (1.4-4.5); T4(THYROXINE) 3.5 ug/dL (4.7-13.3)
[2018-11-19 21:09] VITALS: BP 85/35
[2018-11-19 21:15] VITALS: BP 98/44
[2018-11-19 21:39] VITALS: BP 92/29
[2018-11-19 21:55] VITALS: BP 107/42
[2018-11-19 22:10] VITALS: BP 98/44
[2018-11-19 23:00] VITALS: BP 109/44
[2018-11-20] VITALS (10 sets, daily range): BP systolic 97–132; BP diastolic 39–94; Ht 152.4 cm; Wt 74.2 kg
[2018-11-20 05:39] LABS: BASOPHIL % 0.5 % (0-2); PLATELET COUNT 135 x10^3mcL (130-400)
[2018-11-20 05:45] LABS: RED CELL DISTRIBUTION WIDTH 22.9 % (11.5-14.5)
[2018-11-20 05:51] LABS: CALCIUM 8.2 mg/dL (8.5-10.1); CARBON DIOXIDE 27.7 mmol/L (21-32); MAGNESIUM 3.2 mg/dL (1.8-2.4); POTASSIUM SERUM 4.3 mmol/L (3.5-5.1)
== END 2018-11-20 20:50 | disposition expired | DRG 241 ==
LOC: ED 15:42 → IC 19:10
PROVIDERS: Emergency Medicine; Internal Medicine Gastroenterology; ADMIT Internal Medicine
PROC: 05HQ33Z Insertion of Infusion Device into Left External Jugular Vein, Percutaneous Approach (ICD-10-PCS; principal; 2018-11-19)
PROC: 30233N1 Transfusion of Nonautologous Red Blood Cells into Peripheral Vein, Percutaneous Approach (ICD-10-PCS; 2018-11-19)
PROC: 30233K1 Transfusion of Nonautologous Frozen Plasma into Peripheral Vein, Percutaneous Approach (ICD-10-PCS; 2018-11-20)
PROC: 0DB68ZX Excision of Stomach, Via Natural or Artificial Opening Endoscopic, Diagnostic (ICD-10-PCS; 2018-11-20 12:00)
DX: K25.4 Chronic or unspecified gastric ulcer with hemorrhage (principal); J96.01 Acute respiratory failure with hypoxia; R57.1 Hypovolemic shock; E43 Unspecified severe protein-calorie malnutrition; I13.2 Hypertensive heart and chronic kidney disease with heart failure and with stage 5 chronic kidney disease, or end stage renal disease; I27.81 Cor pulmonale (chronic); K76.6 Portal hypertension; E83.41 Hypermagnesemia; N18.6 End stage renal disease; D62 Acute posthemorrhagic anemia; I50.32 Chronic diastolic (congestive) heart failure; K31.89 Other diseases of stomach and duodenum; K26.3 Acute duodenal ulcer without hemorrhage or perforation; I48.2 Chronic atrial fibrillation; K74.60 Unspecified cirrhosis of liver; E80.6 Other disorders of bilirubin metabolism; Z68.32 Body mass index [BMI] 32.0-32.9, adult; Z99.2 Dependence on renal dialysis; Z99.81 Dependence on supplemental oxygen; Z66 Do not resuscitate
CPT/HCPCS: 36600; 43235; 82962; 83880; 84439; C9113; G0378; J0171; J1200; J1610; J2060; J2250; J2310; J2354; J2405; J3010; J3490; J7030; J7040; J7050; J7620; J8597; P9016; P9047; P9059; Q0092; Q0163